=== PATIENT | male | born 1965 | race Caucasian/White ===

== ENCOUNTER 2022-04-15 10:09 | Emergency (ER) | payer BC, SELFPAY ==
[2022-04-15] VITALS (33 sets, daily range): BP systolic 67–189; BP diastolic 37–119; PULSE 99–129; RESP 16–37; TEMP 26.9–36.5; O2SAT 89–97; BMI 42.3
--- NOTE | 2022-04-15 | DI.RAD.S_ITS ---
PROCEDURE: XR CHEST FOR PICC 1V INDICATIONS: OG TUBE PLACEMENT TECHNIQUE: One view of the chest was acquired. COMPARISON: [facility], CR, XR CHEST 1V, 04/15/2022, 14:58. FINDINGS: Surgical changes and devices: Endotracheal tube with the tip approximately 4.5 cm from the taurus the. Interval placement of endotracheal tube with the tip and side port overlies the left upper quadrant over the expected location of the stomach. Lungs and pleura: Slightly improved aeration of the lungs with diffuse interstitial dove the lower opacities. No pneumothorax. Likely bilateral small pleural effusions. Mediastinum: Mediastinal contours appear normal. Heart size is normal. Bones and chest wall: No suspicious bony lesions. Degenerative changes without acute osseous abnormality. Overlying soft tissues appear unremarkable. IMPRESSION: Interval placement of enteric tube with the tip and side port overlies the left upper quadrant over the expected location of the stomach. The side port is just distal to the gastroesophageal junction. Slightly improved aeration with diffuse interstitial and alveolar opacities along with small pleural effusions. Dictated by: Pal Avila D.O. on 04/15/2022 at 15:41 Approved by: Pal Avila D.O. on 04/15/2022 at 15:43
--- NOTE | 2022-04-15 10:24 | DI.RAD.S_ITS ---
PROCEDURE: XR CHEST 1V INDICATIONS: dyspnea TECHNIQUE: One view of the chest was acquired. COMPARISON: None. FINDINGS: Surgical changes and devices: Overlying monitoring wires Lungs and pleura: Diffuse bilateral reticulonodular pattern, more extensive in the lower lung zones and perihilar regions. Pippa B lines in the lower lungs bilaterally. Blunting of both costophrenic angles. Mediastinum: Heart size at the upper limits of normal. Normal aortic contour. Bones and chest wall: No suspicious bony lesions. Overlying soft tissues appear unremarkable. IMPRESSION: 1. Prominent interstitial congestion and trace bilateral pleural effusions. Consider CHF and correlate with BNP. Dictated by: Blanka Moreland M.D. on 04/15/2022 at 11:17 Approved by: Blanka Moreland M.D. on 04/15/2022 at 11:19
[2022-04-15] MEDS: FUROSEMIDE 40 MG/4 ML VIAL IV (11:04)
[2022-04-15 11:39] LABS: Add Manual Diff / Slide Review NO; Basophils Absolute Auto 100 /uL (0-100); Basophils Percent Auto 0.3 % (0-2); Eosinophils Absolute Auto 0 /uL (0-450); Hemoglobin 13.5 g/dL (13.5-17.5); Lymphocytes Absolute Auto 1400 /uL (1100-4500); Lymphocytes Percent Auto 6.6 % (25-40); Mean Corpuscular HGB Conc 33.7 % (30-36); Mean Corpuscular Hemoglobin 30.7 PG (26-34); Monocytes Absolute Auto 1900 /uL (0-900); Monocytes Percent Auto 8.9 % (3-14); Neutrophils Absolute Auto 17900 /uL (1500-7000); Neutrophils Percent Auto 84.2 % (50-75); Platelet Count 154 X10^3/uL (150-400); Red Blood Cell Count 4.39 X10^6/uL (4.5-5.9); Red Cell Distribution Width 16.2 % (11.6-14.8); White Blood Cell Count 21.3 X10^3/uL (4.5-11.0)
[2022-04-15 11:54] LABS: Alanine Aminotransferase 74 IU/L (<50); Albumin 3.9 g/dL (3.5-5.0); Albumin Globulin Ratio 0.8 (1.0-2.8); Alkaline Phosphatase 89 U/L (38-126); Aspartate Aminotransferase 185 IU/L (17-59); BUN Creatinine Ratio 21.1 (6-22); Bilirubin Total 1.3 mg/dL (0.2-1.3); Blood Urea Nitrogen 16 mg/dL (9-20); Calcium 8.2 mg/dL (8.4-10.2); Carbon Dioxide 23 mmol/L (22-32); Chloride 93 mmol/L (98-107); Estimated Glomerular Filt Rate > 60 mL/min (>60); Globulin 4.6 g/dL (1.7-4.1); Glucose 177 mg/dL (70-100); HEMOLYSIS 38 (0-50); Potassium 3.5 mmol/L (3.4-5.1); Sodium 128 mmol/L (137-145); Total Protein 8.5 g/dL (6.3-8.2)
[2022-04-15 12:00] LABS: COVID19 -Nasal RAPID Negative (Negative)
[2022-04-15 12:06] LABS: NT-proBNP (BNP-Adult 18+) 1580 pg/mL (<125)
[2022-04-15 12:34] LABS: Troponin I 0.967 ng/mL (0.01-0.034)
[2022-04-15 14:04] LABS: HCO3 VBG 26 mmol/L (23-28); PCO2 VBG 34.4 mmHg (45-50); PO2 VBG 38 mmHg (35-45); Total CO2 VBG 27 mmol/L (24-29); pH VBG 7.49 (7.33-7.43)
[2022-04-15 14:05] LABS: Oxygen Saturation VBG 78 % (70-75)
[2022-04-15] MEDS: LORazepam 2 MG/ML INJ 0.5 MG IV (14:20)
--- NOTE | 2022-04-15 14:59 | DI.RAD.S_ITS ---
PROCEDURE: XR CHEST 1V INDICATIONS: Post intubation TECHNIQUE: One view of the chest was acquired. COMPARISON: [facility], CR, XR CHEST 1V, 04/15/2022, 10:29. FINDINGS: Surgical changes and devices: Endotracheal tube with the tip approximately 3.7 cm from the taurus. Lungs and pleura: From prior examination there has been interval progression of the diffuse interstitial and alveolar opacities with small to moderate right greater than left pleural effusions. Mediastinum: Mediastinal contours appear normal. Heart size is normal. Bones and chest wall: No suspicious bony lesions. Overlying soft tissues appear unremarkable. IMPRESSION: Endotracheal tube approximately 3.7 cm from the taurus. Interval increase in interstitial alveolar opacities. This may be in part be due to decreased lung volumes. Dictated by: Pal Avila D.O. on 04/15/2022 at 14:38 Approved by: Pal Avila D.O. on 04/15/2022 at 14:40
[2022-04-15] MEDS: ROCURONIUM 100 MG/10 ML VIAL IV (15:15)
[2022-04-15] MEDS: ETOMIDATE 2 MG/ML 10 ML VIAL 20 MG IV (15:15)
[2022-04-15] MEDS: propofoL 1,000 MG/100 ML VIAL 3.905 MG IV (15:20)
--- NOTE | 2022-04-15 15:20 | PC.NURSE ---
16 fr ogt placed 1520 to intermittan sxn brown stomach contents
[2022-04-15] MEDS: NITROGLYCERIN 50 MG/250 ML INFUS..BTL IV (15:23)
[2022-04-15] MEDS: fentaNYL 1,000 MCG in DEXTROSE 5% IN WATER 230 ML 22.782 MCG IV (15:55)
[2022-04-15] MEDS: FUROSEMIDE 100 MG/10 ML VIAL 80 MG IV (16:00)
[2022-04-15] MEDS: cefTRIAXone 2,000 MG in SODIUM CHLORIDE 0.9% 100 ML 200 MG IV (16:00)
[2022-04-15 16:12] LABS: pH ABG 7.26 (7.35-7.45)
[2022-04-15 16:13] LABS: PCO2 ABG 60.9 mmHg (35-45)
[2022-04-15 16:14] LABS: Fractionated Inspired Oxygen 100; HCO3 ABG 27 mmol/L (22-26); Oxygen Saturation ABG 83 % (95-100); PO2 ABG 56 mmHg (80-100); TCO2 ABG 29 mmol/L (21-31)
[2022-04-15] MEDS: propofoL 200 MG/20 ML VIAL 30 MG IV (16:25)
[2022-04-15] MEDS: propofoL 200 MG/20 ML VIAL 40 MG IV (16:30)
[2022-04-15] MEDS: fentaNYL 100 MCG/2 ML INJ 200 MCG (16:46)
--- NOTE | 2022-04-15 16:55 | P.CONS_ITS ---
History of Present Illness Consult details Date Patient Seen: 04/15/22 Chief complaint: feels like minor heart issue dizzy sweating Narrative: 56-year-old gentleman with an unknown medical history aside from class 3 obesity who presented to the emergency department today complaining of shortness of breath, dizziness, lower extremity edema and some chest pain. Patient was evaluated by Dr. Mansfield in the emergency department. On arrival, he was tachycardic with heart rate of 129, hypoxic at 89% in room air, and hypertensive at 189/118. His temp was normal at 97.7. An EKG was performed which revealed a sinus tachycardia without obvious ST or T-wave changes. He was felt to have evidence of congestive heart failure exacerbation and received furosemide 40 mg IV. Chest x-ray was subsequently performed which revealed prominent interstitial congestion and trace bilateral pleural effusions. Labs returned with a white blood cell count of 21.3, hemoglobin 13.5, hematocrit 40.0, platelets were normal at 154. Chemistry revealed a sodium of 128, potassium 3.5, chloride 93, bicarb 23, BUN 16, creatinine 0.76, glucose 177. AST was elevated at 185, ALT was 74. Initial troponin I was 0.967. BNP was 1580. Total protein was elevated at 8.5 and globulin was elevated at 4.6. COVID test was negative. He received nitroglycerin sublingual 0.4 mg x 3 doses with reported clinical improvement. Initial request for admission was made. Subsequently, patient exhibited decline. Follow-up EKG was performed which showed persistent tachycardia but no obvious arrhythmia or ST changes. He was given lorazepam 0.5 mg IV. He was also placed on BiPAP. Unfortunately, he did not have much benefit. His color worsened, he became progressively more tachycardic, and developed some mottling. Patient was subsequently intubated and placed on mechanical ventilation. At the time of my arrival nitroglycerin drip is being initiated. Patient is presently sedated and unresponsive. Review of Systems Review of Systems Narrative: Review of systems cannot be obtained secondary to critical illness and intubated status Exam Vital Signs (past 8 hours): - 04/15/22 10:13 04/15/22 10:18 04/15/22 10:21 Temperature 97.7 F Pulse Rate 129 H 113 H Respiratory Rate 20 Blood Pressure 189/118 H 189/119 H Pulse Oximetry 89 L 91 Oxygen Delivery Method Room Air Fraction of Inspired Oxygen 04/15/22 10:21 04/15/22 13:37 Temperature Pulse Rate 125 H Respiratory Rate 35 H Blood Pressure 169/98 H Pulse Oximetry 91 Oxygen Delivery Method Fraction of Inspired Oxygen 60 Fraction of Inspired Oxygen 60 Oxygen Delivery Method Room Air Narrative Exam Narrative: GEN: Critically ill-appearing middle-aged male, intubated and sedated, pale HEENT: Normocephalic, face symmetric NECK: Supple, he reportedly had evidence of JVD earlier today, now that he is intubated it is difficult to maneuver his neck to assess CHEST: Respiratory excursions symmetric, course with diffusely diminished breath sounds throughout, crackles in the bases bilaterally CV: Tachycardic with regular rhythm, no murmurs, rubs, gallops, PMI cannot be assessed ABD: Soft, obese, nontender, nondistended, bowel sounds hypoactive,, body habitus limits exam EXTR: Mottling noted to the bilateral thighs, 2 to 3+ edema noted to the lower extremities SKIN: Warm and dry, without rash NEURO: Intubated and sedated PSYCH: Unable to assess Objective Labs Result Diagrams: 04/15/22 10:21 04/15/22 10:21 Labs: Laboratory Results - last 24 hr 04/15/22 04/15/22 04/15/22 10:21 10:21 10:21 WBC 21.3 H RBC 4.39 L Hgb 13.5 Hct 40.0 L MCV 91.0 MCH 30.7 MCHC 33.7 RDW 16.2 H Plt Count 154 Neut % (Auto) 84.2 H Lymph % (Auto) 6.6 L Towner % (Auto) 8.9 Eos % (Auto) 0.0 L Baso % (Auto) 0.3 Neut # (Auto) 04436 H Lymph # (Auto) 1400 Towner # (Auto) 1900 H Eos # (Auto) 0 Baso # (Auto) 100 ABG pH ABG pCO2 ABG pO2 ABG HCO3 ABG Total CO2 ABG O2 Saturation ABG Base Excess VBG pH VBG pCO2 VBG pO2 VBG HCO3 VBG Total CO2 VBG O2 Saturation VBG Base Excess FiO2 Sodium 128 L Potassium 3.5 Chloride 93 L Carbon Dioxide 23 BUN 16 Creatinine 0.76 Estimated GFR > 60 BUN/Creatinine Ratio 21.1 Glucose 177 H Calcium 8.2 L Total Bilirubin 1.3 AST 185 H ALT 74 H Alkaline Phosphatase 89 Troponin I 0.967 H* NT-Pro-B Natriuret Pep 1580 H Total Protein 8.5 H Albumin 3.9 Globulin 4.6 H Albumin/Globulin Ratio 0.8 L SARS-CoV-2 (PCR) Negative 04/15/22 04/15/22 04/15/22 13:25 15:13 15:25 WBC RBC Hgb Hct MCV MCH MCHC RDW Plt Count Neut % (Auto) Lymph % (Auto) Towner % (Auto) Eos % (Auto) Baso % (Auto) Neut # (Auto) Lymph # (Auto) Towner # (Auto) Eos # (Auto) Baso # (Auto) ABG pH 7.26 L* ABG pCO2 60.9 H ABG pO2 56 L ABG HCO3 27 H ABG Total CO2 29 ABG O2 Saturation 83 L* ABG Base Excess 0.0 VBG pH 7.49 H VBG pCO2 34.4 L VBG pO2 38 VBG HCO3 26 VBG Total CO2 27 VBG O2 Saturation 78 H VBG Base Excess 3.0 FiO2 100 Sodium Potassium Chloride Carbon Dioxide BUN Creatinine Estimated GFR BUN/Creatinine Ratio Glucose Calcium Total Bilirubin AST ALT Alkaline Phosphatase Troponin I 1.990 H* NT-Pro-B Natriuret Pep Total Protein Albumin Globulin Albumin/Globulin Ratio SARS-CoV-2 (PCR) [facility] Comment: Past medical history, family history, social history, surgical history, medications, allergies all could not be obtained secondary to patient's critical illness Tobacco & Substance Use Smoking Status: Current every day smoker Assessment & Plan Assessment & Plan narrative: 1. Acute hypoxic respiratory failure Likely etiology is from pulmonary edema related to congestive heart failure. Patient is now intubated and mechanically ventilated. RT is having some difficulty oxygenating him. Patient is being transferred to [facility] in [place], [place] for higher level of care. 2. Acute non ST elevation NM Have patient will be placed on heparin drip in addition to the nitroglycerin drip. Follow-up troponin level has been ordered. Unable to obtain a stat echocardiogram. 3. Acute Congestive heart failure, unknown if systolic or diastolic As noted, we were unable to obtain a stat echocardiogram. The patient received 40 mg of IV Lasix in the emergency department without much benefit. Will give an additional 80 mg IV. Devries catheter is being placed for monitoring urine output. 4. Tachycardia, uncertain if sinus tachycardia or atrial flutter No clear flutter waves on his EKG imaging. He is quite tachycardic however making sinus tachycardia less likely. May benefit from a rate reduction interventions. Await further stabilization of his respiratory status prior to adding anything for rate control. ED physician spoke with scheduled [facility], who recommended against the addition of a beta-zachary for now. 5. Hyperglycemia, likely diabetes Blood glucose was 177 on labs. Will need further workup pending improvement of his critical illness. Will likely need fingersticks and sliding scale. 6. Hyponatremia Sodium was 128. Anticipate this will improve with diuresis. 7. Leukocytosis This may be reactive in nature versus secondary to underlying infection. I have recommended to the emergency room physician the addition of empiric antibiotic therapy, broad-spectrum in nature. 8. Elevated protein levels Given his significant volume overload, his elevated protein levels could be secondary to intravascular volume depletion or underlying gammopathy. Could consider an SPEP upon further evaluation by outside hospital. 9. Transaminitis Likely secondary to hepatic congestion from congestive heart failure. Code status Full Prophylaxis He is on a cardiac dose heparin drip Disposition Await transfer to higher level of care Time Spent With Patient Critical Care time: I spent a total of [] minutes of critical care time on this patient's care today; this time is exclusive of procedural time.
[2022-04-15] MEDS: HEPARIN DRIP 25,000 UNIT/500 ML IV.SOLN 31.243 UNIT IV (17:30)
[2022-04-15] MEDS: fentaNYL 100 MCG/2 ML INJ 50 MCG IV ×2 (18:00→18:10)
--- NOTE | 2022-04-15 18:52 | PC.NURSE ---
Pt was loaded onto EMS stretcher @ 1820 for ALS transport to [facility], EMS/ALS returned to ED ambulance bay @ 1840 due to EMS equipment O2 system improperly working, pt brought back to ED Rm 1 @ 1840 for vent/O2/VS monitoring between 1839 - 1914. Physician at bedside. RT at bedside.
--- NOTE | 2022-04-15 19:44 | PC.NURSE ---
Propofol documented at 1939 was changed @ 1708 to decreased to 20mcg/kg/min. Propofol stopped completely @ 1717 due to pt BP.
--- NOTE | 2022-04-15 20:14 | PC.NURSE ---
20g IV placed in left wrist, 20gIV placed in right wrist, 20gIV placed in left Forearm for critical care access.
--- NOTE | 2022-04-15 20:15 | PC.NURSE ---
Pts vital signs were set to every 5 mins between 1445 and d/c @ 1830. Overall vital signs did not transfer from monitor (in room 8) to pt chart due to monitor and/or [employer] glitch. hearing therapist aware, attempted to assist with correcting monitor/[employer]ite[employer] error. Physician aware. This RN was 1:1 with patient between 1430 and 1830 d/c.
--- NOTE | 2022-04-15 20:15 | PC.NURSE ---
Pt intubated at 1515, physician/RT/pharmacist at bedside. See paper chart for vital signs between 1013 and 1337. OG placed at 1520.
--- NOTE | 2022-04-15 20:18 | PC.NURSE ---
EMS/ALS team took remaining heparin drip with them as well as the remaining propofol & fentanyl. Witnessed by Vera PALUMBO.
--- NOTE | 2022-04-15 20:40 | ED.SOB ---
HPI - SOB/Dyspnea General Chief Complaint: Shortness of Breath/Dyspnea Stated Complaint: feels like minor heart issue dizzy sweating Time Seen by Provider: 04/15/22 10:24 Source: patient Mode of arrival: Ambulatory Limitations: no limitations History of Present Illness HPI Narrative: This gentleman comes to the emergency department feeling ill since last night. He says that about 10:00 p.m. last night he began to feel short of breath. He also reports some mild chest pain but the more prominent symptom was the shortness of breath. He has no COVID exposures nor was he immunized to COVID-19. He does not smoke cigarettes he denies any pulmonary or cardiac history he denies any other past medical history of any kind. He does say that the shortness of breath was worse when he is lying flat. Review of Systems Review of Systems Narrative: Detailed and complete review of systems is negative other than as noted above. Patient History Social History Smoking Status: Current every day smoker Smoking Status: Current every day smoker Substance Use Type: does not use Exam Narrative Exam Narrative: GENERAL: Alert, in significant distress working hard to breathe. Patient is obese HEAD: Atraumatic. Normocephalic. EYES: Sclera are clear without icterus. Extraocular movements are full. ENT: No rhinorrhea. Oropharynx is moist. Mouth exam is benign. NECK: Supple. Full range of motion. Jugular venous distention is easily observed. CARDIOVASCULAR: Normal rate and rhythm without murmur gallop or rub. RESPIRATORY: Patient is tachypneic with rales and rhonchi throughout all lung mukherjee. GASTROINTESTINAL: Abdomen soft, non-tender, nondistended. EXTREMITIES: Marked bilateral peripheral edema below the knees, full range of motion. No obvious trauma. BACK: Normal inspection, no CVA tenderness. NEURO: Nonfocal examination, normal speech, normal gait. SKIN: Patient is diaphoretic PSYCH: Normally oriented. Normal range of affect. Appropriate behavior Initial Vital Signs Initial Vital Signs: Vital Signs Temperature 97.7 F 04/15/22 10:13 Pulse Rate 129 H 04/15/22 10:13 Respiratory Rate 20 04/15/22 10:13 Blood Pressure 189/118 H 04/15/22 10:13 Pulse Oximetry 89 L 04/15/22 10:13 Oxygen Delivery Method 04/15/22 10:13 Procedures Intubation Time of Intubation: 15:00 Time out performed: No sedative: Etomidate Mg Given: 20 paralytic: Rocuronium Mg Given: 100 Laryngoscope: fiber optic video scope Assist Device Used: fiber optic device ET Tube Size: 7.5 ET Tube Uncuffed: No Tube Placement Confirmation: Visualized tube passing through cords, Equal breath sounds bilaterally, Confirmation by capnometry and Chest Xray Patient Tolerated Procedure: No complications Intubation Complications: none Course Course Course Narrative: This patient was obviously in some distress and I felt clinically that the patient was in distress secondary to fluid overload from congestive heart failure. Initially we administered nitroglycerin sublingually along with intravenous Lasix. When I recheck the patient about an hour later he was feeling much better. About an hour after that he was feeling worse again and we put the patient on BiPAP which helped for about an hour. This was at about 13 20. He was then much worse about an hour later and looked like he was failing and so the decision was made to provide mechanical ventilation. Patient was intubated according to the procedure note above. Postprocedure the oxygen saturations were in the 60s but tube placement was confirmed convincingly. Slowly over about 20 minutes the oxygen saturation climbed to 90%. I discussed the case with Dr. Yoo from Cardiology. She had no specific additional advice regarding management other than what we had already given other than recommending IV heparin. She encouraged just not immediately instituted beta-zachary in the acute phase. I asked Dr. Wong to help and she kindly came to the bedside to help with consultation as well. The patient eventually became quite agitated as sedation was inadequate despite IV fentanyl and propofol. Bolus doses were administered and the patient subsequently became hypotensive. Nitroglycerin and propofol and fentanyl were discontinued for a period of time to allow the patient to wake up which restored normal blood pressure. Thoughts presently the patient agitation returned and more judicious dosing of propofol and fentanyl were administered to provide adequate analgesia and sedation. I discussed the case with Dr. Nadege jennings from [facility] and [place] who agrees to accept the patient to their ICU. 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 The ALS unit arrived to transfer the patient to [place] and the patient was in their rig but they discovered that they could not deliver oxygen so the patient was briefly moved back to the emergency department for oxygen supplementation while they were able to troubleshoot the problem and find normal flowing oxygen and then the patient was moved back to the ambulance rig for transport to the hospital in [place]. Orders Ordered: ED Orders 04/15/22 13:25 VBG [Venous Blood Gas] Stat 04/15/22 14:59 CXR [XR chest 1V] Stat 04/15/22 15:13 Troponin I Stat 04/15/22 15:25 Arterial Blood Gas Stat Fentanyl (Fentanyl 100 Mcg/2 Ml Inj) 50 mcg IV Q1H PRN PRN Reason: Pain, Severe (7-10) Last Admin: 04/15/22 18:10 Dose: 50 mcg Documented By: Admin: 04/15/22 18:00 Dose: 50 mcg Documented By: REYES Nitroglycerin (Nitroglycerin) 50 mg in 250 mls @ 1.5 mls/hr IV TITRATE JANIE; Protocol Last Titration: 04/15/22 17:10 Dose: 0 mcg/min, 0 mls/hr Documented By: REYES(2) Titration: 04/15/22 16:13 Dose: 10 mcg/min, 3 mls/hr Documented By: REYES(2) Admin: 04/15/22 15:23 Dose: 5 mcg/min, 1.5 mls/hr Documented By: REYES(2) Heparin Sodium/Dextrose (Heparin Drip) 25,000 unit in 500 mls @ 31.243 mls/hr IV CONT JANIE; Protocol Last Titration: 04/15/22 18:20 Dose: 0 units/kg/hr, 0 mls/hr Documented By: REYES(2) Admin: 04/15/22 17:30 Dose: 12 units/kg/hr, 31.243 mls/hr Documented By: REYES(2) Propofol (Propofol) 1,000 mg in 100 mls @ 3.905 mls/hr IV TITRATE JANIE; Protocol Last Titration: 04/15/22 19:39 Dose: 20 mcg/kg/min, 15.622 mls/hr Documented By: REYES(2) Titration: 04/15/22 16:45 Dose: 40 mcg/kg/min, 31.243 mls/hr Documented By: REYES(2) Titration: 04/15/22 16:40 Dose: 20 mcg/kg/min, 15.622 mls/hr Documented By: REYES(2) Titration: 04/15/22 16:19 Dose: 15 mcg/kg/min, 11.716 mls/hr Documented By: REYES(2) Titration: 04/15/22 16:04 Dose: 10 mcg/kg/min, 7.811 mls/hr Documented By: REYES(2) Admin: 04/15/22 15:20 Dose: 5 mcg/kg/min, 3.905 mls/hr Documented By: REYES(2) Fentanyl 1,000 mcg/ Dextrose 250 mls @ 22.782 mls/hr IV TITRATE JANIE; Protocol Last Titration: 04/15/22 17:30 Dose: 0 mcg/kg/hr, 0 mls/hr Documented By: REYES(2) Titration: 04/15/22 17:30 Dose: 0 mcg/kg/hr, 0 mls/hr Documented By: REYES(2) Titration: 04/15/22 16:19 Dose: 2 mcg/kg/hr, 65.091 mls/hr Documented By: REYES(2) Titration: 04/15/22 16:04 Dose: 1 mcg/kg/hr, 32.545 mls/hr Documented By: REYES(2) Admin: 04/15/22 15:55 Dose: 0.7 mcg/kg/hr, 22.782 mls/hr Documented By: REYES(2) Nitroglycerin (Nitroglycerin 0.4 Mg Sl Tab) 0.4 mg SL [id number] PRN PRN Reason: Chest Pain Discontinued Medications Etomidate (Etomidate 2 Mg/Ml 10 Ml Vial) 20 mg IV NOW ONE Stop: 04/15/22 15:06 Last Admin: 04/15/22 15:15 Dose: 20 mg Documented By: REYES Furosemide (Furosemide 40 Mg/4 Ml Vial) 40 mg IV NOW ONE Stop: 04/15/22 10:25 Last Admin: 04/15/22 11:04 Dose: 40 mg Documented By: REYES(2) Furosemide (Furosemide 100 Mg/10 Ml Vial) 80 mg IV NOW ONE Stop: 04/15/22 14:43 Last Admin: 04/15/22 16:00 Dose: 80 mg Documented By: REYES(2) Ceftriaxone Sodium 2,000 mg/ (Sodium Chloride) 100 mls @ 200 mls/hr IV NOW ONE Stop: 04/15/22 15:39 Last Infusion: 04/15/22 16:30 Dose: 0 mls/hr Documented By: REYES(2) Admin: 04/15/22 16:00 Dose: 200 mls/hr Documented By: REYES(2) Ketamine HCl (Ketamine 500 Mg/5 Ml Inj) 130 mg 1 mg/kg (130 mg) IV NOW ONE Stop: 04/15/22 18:45 Last Admin: 04/15/22 19:52 Dose: Not Given Documented By: REYES(2) Lorazepam (Lorazepam 2 Mg/Ml Inj) 0.5 mg IV NOW ONE Stop: 04/15/22 14:14 Last Admin: 04/15/22 14:20 Dose: 0.5 mg Documented By: REYES(2) Propofol (Propofol 200 Mg/20 Ml Vial) 30 mg IV NOW ONE Stop: 04/15/22 16:24 Last Admin: 04/15/22 16:25 Dose: 30 mg Documented By: REYES(2) Propofol (Propofol 200 Mg/20 Ml Vial) 40 mg IV NOW ONE Stop: 04/15/22 16:31 Last Admin: 04/15/22 16:30 Dose: 40 mg Documented By: REYES(2) Propofol (Propofol 200 Mg/20 Ml Vial) 20 mg IV NOW ONE Stop: 04/15/22 16:41 Rocuronium [place] (Rocuronium 100 Mg/10 Ml Vial) 100 mg IV NOW ONE Stop: 04/15/22 15:06 Last Admin: 04/15/22 15:15 Dose: 100 mg Documented By: REYES Vital Signs Vital signs: Vital Signs - 8 hr 04/15/22 13:37 04/15/22 17:03 04/15/22 17:03 Pulse Rate 106 H Respiratory Rate 24 Blood Pressure 169/98 H 102/57 L Pulse Oximetry 90 L Fraction of Inspired Oxygen 60 04/15/22 17:05 04/15/22 17:05 04/15/22 17:07 Pulse Rate 105 H 104 H Respiratory Rate 24 24 Blood Pressure 69/37 L Pulse Oximetry 90 L 91 Fraction of Inspired Oxygen 04/15/22 17:07 04/15/22 17:08 04/15/22 17:08 Pulse Rate 104 H Respiratory Rate 24 Blood Pressure 73/40 L 76/44 L Pulse Oximetry 91 Fraction of Inspired Oxygen 04/15/22 17:10 04/15/22 17:10 04/15/22 17:11 Pulse Rate 102 H 102 H Respiratory Rate 24 24 Blood Pressure 72/39 L Pulse Oximetry 92 92 Fraction of Inspired Oxygen 04/15/22 17:11 04/15/22 17:14 04/15/22 17:14 Pulse Rate 101 H Respiratory Rate 24 Blood Pressure 73/41 L 71/39 L Pulse Oximetry 92 Fraction of Inspired Oxygen 04/15/22 17:15 04/15/22 17:15 04/15/22 17:16 Pulse Rate 101 H 100 H Respiratory Rate 24 24 Blood Pressure 67/38 L Pulse Oximetry 93 93 Fraction of Inspired Oxygen 04/15/22 17:16 04/15/22 17:20 04/15/22 17:20 Pulse Rate 99 H Respiratory Rate 24 Blood Pressure 67/41 L 67/42 L Pulse Oximetry 91 Fraction of Inspired Oxygen 04/15/22 17:22 04/15/22 17:22 04/15/22 17:25 Pulse Rate 100 H 100 H Respiratory Rate 24 24 Blood Pressure 71/46 L Pulse Oximetry 91 92 Fraction of Inspired Oxygen 04/15/22 17:25 04/15/22 17:28 04/15/22 17:28 Pulse Rate 101 H Respiratory Rate 24 Blood Pressure 72/49 L 76/52 L Pulse Oximetry 92 Fraction of Inspired Oxygen 04/15/22 17:30 04/15/22 17:30 04/15/22 17:35 Pulse Rate 101 H 101 H Respiratory Rate 24 24 Blood Pressure 77/50 L Pulse Oximetry 93 93 Fraction of Inspired Oxygen 04/15/22 17:35 04/15/22 17:40 04/15/22 17:40 Pulse Rate 101 H Respiratory Rate 24 Blood Pressure 82/51 L 90/56 L Pulse Oximetry 93 Fraction of Inspired Oxygen 04/15/22 17:45 04/15/22 17:45 04/15/22 17:51 Pulse Rate 102 H 120 H Respiratory Rate 24 33 H Blood Pressure 96/58 L Pulse Oximetry 92 Fraction of Inspired Oxygen 04/15/22 17:51 04/15/22 17:54 04/15/22 17:54 Pulse Rate 123 H Respiratory Rate 32 H Blood Pressure 158/86 H 157/85 H Pulse Oximetry Fraction of Inspired Oxygen 04/15/22 17:56 04/15/22 17:56 04/15/22 18:00 Pulse Rate 116 H 110 H Respiratory Rate 26 H 37 H Blood Pressure 143/76 H Pulse Oximetry Fraction of Inspired Oxygen 04/15/22 18:38 04/15/22 18:42 04/15/22 18:42 Pulse Rate 123 H 120 H Respiratory Rate 27 H Blood Pressure 113/66 Pulse Oximetry 95 97 Fraction of Inspired Oxygen 04/15/22 18:50 04/15/22 18:50 04/15/22 18:51 Pulse Rate 114 H Respiratory Rate 26 H Blood Pressure 103/60 103/60 Pulse Oximetry 97 Fraction of Inspired Oxygen 04/15/22 18:51 04/15/22 18:55 04/15/22 18:55 Pulse Rate 114 H 113 H Respiratory Rate 25 H 27 H Blood Pressure 99/60 Pulse Oximetry 96 95 Fraction of Inspired Oxygen 04/15/22 19:00 04/15/22 19:00 Pulse Rate 112 H Respiratory Rate 27 H Blood Pressure 99/59 L Pulse Oximetry 95 Fraction of Inspired Oxygen MDM - SOB/Dyspnea Lab Data Result diagrams: 04/15/22 10:21 04/15/22 10:21 Labs: Lab Results 04/15/22 04/15/22 04/15/22 Range/Units 10:21 10:21 10:21 WBC 21.3 H (4.5-11.0) X10^3/uL RBC 4.39 L (4.5-5.9) X10^6/uL Hgb 13.5 (13.5-17.5) g/dL Hct 40.0 L (41-53) % MCV 91.0 (80-100) fL MCH 30.7 (26-34) PG MCHC 33.7 (30-36) % RDW 16.2 H (11.6-14.8) % Plt Count 154 (150-400) X10^3/uL Neut % (Auto) 84.2 H (50-75) % Lymph % (Auto) 6.6 L (25-40) % [place] % (Auto) 8.9 (3-14) % Eos % (Auto) 0.0 L (2-4) % Baso % (Auto) 0.3 (0-2) % Neut # (Auto) 36056 H (5227-2709) /uL Lymph # (Auto) 1400 (0279-5488) /uL [place] # (Auto) 1900 H (0-900) /uL Eos # (Auto) 0 (0-450) /uL Baso # (Auto) 100 (0-100) /uL ABG pH (7.35-7.45) ABG pCO2 (35-45) mmHg ABG pO2 (80-100) mmHg ABG HCO3 (22-26) mmol/L ABG Total CO2 (21-31) mmol/L ABG O2 Saturation (95-100) % ABG Base Excess (-2-2) mmol/L VBG pH (7.33-7.43) VBG pCO2 (45-50) mmHg VBG pO2 (35-45) mmHg VBG HCO3 (23-28) mmol/L VBG Total CO2 (24-29) mmol/L VBG O2 Saturation (70-75) % VBG Base Excess (0-4) mmol/L FiO2 Sodium 128 L (137-145) mmol/L Potassium 3.5 (3.4-5.1) mmol/L Chloride 93 L (98-107) mmol/L Carbon Dioxide 23 (22-32) mmol/L BUN 16 (9-20) mg/dL Creatinine 0.76 (0.66-1.25) mg/dL Estimated GFR > 60 (>60) mL/min BUN/Creatinine Ratio 21.1 (6-22) Glucose 177 H (70-100) mg/dL Calcium 8.2 L (8.4-10.2) mg/dL Total Bilirubin 1.3 (0.2-1.3) mg/dL AST 185 H (17-59) IU/L ALT 74 H (<50) IU/L Alkaline Phosphatase 89 (38-126) U/L Troponin I 0.967 H* (0.01-0.034) ng/mL NT-Pro-B Natriuret Pep 1580 H (<125) pg/mL Total Protein 8.5 H (6.3-8.2) g/dL Albumin 3.9 (3.5-5.0) g/dL Globulin 4.6 H (1.7-4.1) g/dL Albumin/Globulin Ratio 0.8 L (1.0-2.8) SARS-CoV-2 (PCR) Negative (Negative) 04/15/22 04/15/22 04/15/22 Range/Units 13:25 15:13 15:25 WBC (4.5-11.0) X10^3/uL RBC (4.5-5.9) X10^6/uL Hgb (13.5-17.5) g/dL Hct (41-53) % MCV (80-100) fL MCH (26-34) PG MCHC (30-36) % RDW (11.6-14.8) % Plt Count (150-400) X10^3/uL Neut % (Auto) (50-75) % Lymph % (Auto) (25-40) % [place] % (Auto) (3-14) % Eos % (Auto) (2-4) % Baso % (Auto) (0-2) % Neut # (Auto) (2974-0875) /uL Lymph # (Auto) (1698-2291) /uL [place] # (Auto) (0-900) /uL Eos # (Auto) (0-450) /uL Baso # (Auto) (0-100) /uL ABG pH 7.26 L* (7.35-7.45) ABG pCO2 60.9 H (35-45) mmHg ABG pO2 56 L (80-100) mmHg ABG HCO3 27 H (22-26) mmol/L ABG Total CO2 29 (21-31) mmol/L ABG O2 Saturation 83 L* (95-100) % ABG Base Excess 0.0 (-2-2) mmol/L VBG pH 7.49 H (7.33-7.43) VBG pCO2 34.4 L (45-50) mmHg VBG pO2 38 (35-45) mmHg VBG HCO3 26 (23-28) mmol/L VBG Total CO2 27 (24-29) mmol/L VBG O2 Saturation 78 H (70-75) % VBG Base Excess 3.0 (0-4) mmol/L FiO2 100 Sodium (137-145) mmol/L Potassium (3.4-5.1) mmol/L Chloride (98-107) mmol/L Carbon Dioxide (22-32) mmol/L BUN (9-20) mg/dL Creatinine (0.66-1.25) mg/dL Estimated GFR (>60) mL/min BUN/Creatinine Ratio (6-22) Glucose (70-100) mg/dL Calcium (8.4-10.2) mg/dL Total Bilirubin (0.2-1.3) mg/dL AST (17-59) IU/L ALT (<50) IU/L Alkaline Phosphatase (38-126) U/L Troponin I 1.990 H* (0.01-0.034) ng/mL NT-Pro-B Natriuret Pep (<125) pg/mL Total Protein (6.3-8.2) g/dL Albumin (3.5-5.0) g/dL Globulin (1.7-4.1) g/dL Albumin/Globulin Ratio (1.0-2.8) SARS-CoV-2 (PCR) (Negative) Imaging Data Chest x-ray: My Impression: Patient: Sheldon Aguilar MR#: [id number] : 1965 Acct:[id number] Age/Sex: 56 / M Date of Service: 04/15/22 Loc: ED Accession Number: [id number] ?? Procedure: XR chest 1V Ordering Provider: Pramod Mansfield MD PROCEDURE:? XR CHEST 1V ? INDICATIONS:? Post intubation ? TECHNIQUE:? One view of the chest was acquired.? ? COMPARISON:? [facility], , XR CHEST 1V, 04/15/2022, 10:29. ? FINDINGS:? ? Surgical changes and devices:? Endotracheal tube with the tip approximately 3.7 cm from the taurus. ? Lungs and pleura:? From prior examination there has been interval progression of the diffuse interstitial and alveolar opacities with small to moderate right greater than left pleural effusions. ? Mediastinum:? Mediastinal contours appear normal.? Heart size is normal.? ? Bones and chest wall:? No suspicious bony lesions.? Overlying soft tissues appear unremarkable.? ? IMPRESSION:? ? Endotracheal tube approximately 3.7 cm from the taurus. ? Interval increase in interstitial alveolar opacities.? This may be in part be due to decreased lung volumes. ? ? Dictated by: Pal Avila D.O. on 04/15/2022 at 14:38 ? ? Approved by: Pal Avila D.O. on 04/15/2022 at 14:40 ? MDM Narrative Medical decision making narrative: This complicated patient was felt to be in congestive heart failure. Not clear if there was an acute myocardial ischemia part of the puzzle such as myocardial infarction. Troponins were elevated quite dramatically but of course it is hard to say whether this was the primary issue or a result of the severe congestive heart failure. In any case I felt like the care of this patient would be most appropriately managed at a facility where her inpatient cardiology evaluation was possible which was not here so we made arrangements for the patient to be transferred. Once the patient was placed on mechanical ventilation other than the agitation, the patient seemed to do quite a bit better. Devries catheter was placed and a large dose of IV diuretic was administered with only modest output. Critical Care Time Critical Care Time Critical Care Time: Yes Total Critical Care Time: 120 Attestation: I spent at least 120 minutes of critical care time at the bedside and discussing the case with consultants and re-evaluating the patient and re-examining the patient and reviewing imaging and laboratory results and response to therapy. This is independent of the procedure time for intubation. Discharge Plan Departure Patient Disposition: [facility] Clinical Impression: Congestive heart failure, Myocardial infarction, Acute hypoxemic respiratory failure Referrals: Mohan Christensen MD [Primary Care Provider] -
== END 2022-04-15 20:22 | disposition short-term general hospital (02) ==
PROVIDERS: Family Medicine; Emergency Provider Family Medicine Addiction Medicine; PCP Family Medicine
DX: I50.9 Heart failure, unspecified (principal); I21.9 Acute myocardial infarction, unspecified; J96.01 Acute respiratory failure with hypoxia; Z20.822 Contact with and (suspected) exposure to COVID-19
CPT/HCPCS: 31500; 36415; 36600; 71045; 80053; 82805; 83880; 84484; 85025; 87635; 93005; 94002; 94660; 94799; 96365; 96366; 96367; 96368; 96375; 96376; 99284; 99291; 99292; C9803; J0696; J1644; J1940; J2060; J2704; J3010